=== PATIENT | male | born 1935 | race Asian ===

== ENCOUNTER 2024-03-09 15:32 | Emergency (ER) | payer MEDICARE, OTHER, SELFPAY ==
[2024-03-09] VITALS (9 sets, daily range): BP systolic 125–163; BP diastolic 73–108; PULSE 75–86; RESP 18; TEMP 36.5–36.9; O2SAT 91–95; BMI 27.3
--- NOTE | 2024-03-09 15:55 | EKG_ITS ---
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) [place] Order Number: [id number] Reading MD: Gabbie Molina ([facility]) [place] Measurements Intervals [place] Rate: 82 P: 9 [place]: 159 QRS: -8 QRSD: 88 T: 147 QT: 359 QTc: 421 Interpretive Statements SINUS RHYTHM MODERATE VOLTAGE CRITERIA FOR LVH, CONSIDER NORMAL VARIANT [MEETS CRITERIA IN ONE OF: R(aVL), S(V1), R(V5), R(V5/V6)+S(V1)] NONSPECIFIC T-WAVE ABNORMALITY Compared to ECG 07/08/2019 16:15:51 No significant changes /store/S0/[id number].pdf
--- NOTE | 2024-03-09 15:55 | XR_ITS ---
Examination: PA chest single view TECHNIQUE: Upright PA chest single view Exam date and time: March 09, 2024 1623 hours Comparison July 08, 2019 INDICATIONS: Shortness of breath and fever today. FINDINGS: Normal heart size Ectatic thoracic aorta. No pneumonia or pulmonary edema. The osseous structures are intact Minor subsegmental atelectasis left base IMPRESSION: No pneumonia or pulmonary edema
--- NOTE | 2024-03-09 15:55 | PD.EDRME ---
Rapid Medical Screening Exam RME Arrival date/time: 03/09/24 15:32 This is an 88-year-old male who presents to the emergency department with complaints of generalized weakness that worsens over 6 days. I have greeted and performed a focused initial assessment of this patient. Initial appropriate labs ordered at this time. A comprehensive ED assessment and evaluation of the patient and analysis of all test and completion of medical decision making process will be conducted by additional ED provider. Chief Complaint: Weakness Time Seen by Provider: 03/09/24 15:45 Vital signs: Vital Signs Temperature 98.4 F 03/09/24 15:44 Pulse Rate 86 03/09/24 15:44 Respiratory Rate 18 03/09/24 15:44 Blood Pressure 125/75 03/09/24 15:44 Pulse Oximetry (%) 92 L 03/09/24 15:44 Oxygen Delivery Method Room Air 03/09/24 15:44
--- NOTE | 2024-03-09 16:10 | PD.EDWEAK ---
ED Weakness RME/HPI General Chief complaint: Weakness Stated complaint: WEAK x 6 DAYS, SHORT OF BREATH TODAY Time Seen by Provider: 03/09/24 15:45 Arrival date/time: 03/09/24 15:32 RME / HPI RME / HPI Narrative: 88-year-old male patient with significant history of hypertension, came in for evaluation regarding generalized body weakness. Patient's been having worsening generalized body weakness for the last 6 days, and today patient noticed shortness of breath, severity mild. Patient also complained of getting up during the night at least 10 times to urinate. Patient denies any fever denies any cough denies any other complaints no medication was taken prior to arrival. Related Data Home Medications ?Medication ?Instructions ?Recorded ?Confirmed nifedipine 30 mg tablet,extended 30 mg PO QDAY 11/02/19 11/29/19 release tamsulosin 0.4 mg capsule 0.4 mg PO QHS 11/02/19 11/29/19 Previous Rx's ?Medication ?Instructions ?Recorded amoxicillin 875 mg-potassium 1 tab PO BID #14 tabs 03/09/24 clavulanate 125 mg tablet azithromycin 250 mg tablet 250 mg PO QDAY 4 days #4 tabs 03/09/24 (Zithromax) pantoprazole 40 mg tablet,delayed 40 mg PO QDAY #20 tabs 03/09/24 release (Protonix) tamsulosin 0.4 mg capsule (Flomax) 0.4 mg PO QDAY #30 caps 03/09/24 Allergies Allergy/AdvReac Type Severity Reaction Status Date / Time No Known Allergies Allergy Verified 03/09/24 15:35 Review of Systems Review of Systems Narrative Review of Systems: Review of system reviewed and within normal limits except mentioned in HPI ED Exam Narrative Physical exam: VITAL SIGNS: Reviewed. GENERAL APPEARANCE: Alert and interactive, follows commands, no acute distress, HEAD AND FACE: Non-traumatic. ENT: PERRL, pink conjunctivitis, eyelid no trauma, Mucous membrane moist. NECK: Supple, nontender, no nuchal rigidity. CHEST: No tenderness, no crepitus, no paradoxical movement, no retractions. LUNGS: Clear, well ventilated, symmetric, no rales, no wheezing, no ronchi, no stridor, good breath sounds bilaterally. HEART: Regular rate, regular rhythm, no murmur, no gallops. ABDOMEN: Soft, positive bowel sounds, nondistended, no guarding, nontender, no rebound, no masses, RECTAL: Deferred. GENITAL: Deferred. NEUROLOGICAL: Gross motor function intact sensory function intact, Appropriate for age. MUSCULOSKELETAL: low back nontender, full range of motion. EXTREMITIES: Nontender, full range of motion. SKIN: Color pink, dry, no rash, no lacerations, no abrasions, no contusions. LYMPHATICS: Deferred. Course Quality Measures none Orders Category Date Time Status Bedside COVID-19 Antigen Test NOW Care 03/09/24 15:55 Completed Bedside Influenza A&B Antigen Test NOW Care 03/09/24 15:[address] Screening NOW Care 03/09/24 16:57 Completed EKG (ED ONLY) *Do not use* NOW Care 03/09/24 15:[address] chest abdomen pelvis w Stat Exams 03/09/24 16:56 Completed EKG (ED Only) Stat Exams 03/09/24 15:55 Draft XR chest 1V portable Stat Exams 03/09/24 15:55 Completed B-Type Natriuretic Peptide Stat Lab 03/09/24 16:07 Completed Blood Culture (Lab) Stat Lab 03/09/24 16:11 Received CBC Stat Lab 03/09/24 16:07 Completed Comprehensive Metabolic Panel Stat Lab 03/09/24 16:07 Completed Lactate (Lactic Acid) Stat Lab 03/09/24 16:07 Completed Lipase Stat Lab 03/09/24 16:07 Completed Magnesium Stat Lab 03/09/24 16:07 Completed Partial Thromboplastin Time Stat Lab 03/09/24 16:07 Completed Procalcitonin Stat Lab 03/09/24 16:07 Completed Prothrombin Time with INR Stat Lab 03/09/24 16:07 Completed Troponin I Stat Lab 03/09/24 16:07 Completed Urinalysis Stat Lab 03/09/24 16:54 Completed Urinalysis, C/S if Indicated Stat Lab 03/09/24 16:54 Completed Amoxicillin/Pot Clav 875 [Augmentin 875] Med 03/09/24 20:14 Discontinued 1 tab PO X1 ONE Azithromycin Po [Zithromax PO] Med 03/09/24 20:14 Discontinued 500 mg PO X1 ONE Vital Signs Vital signs: Vital Signs Temperature 98.4 F 03/09/24 15:44 Pulse Rate 86 03/09/24 15:44 Respiratory Rate 18 03/09/24 15:44 Blood Pressure 125/75 03/09/24 15:44 Pulse Oximetry (%) 92 L 03/09/24 15:44 Oxygen Delivery Method Room Air 03/09/24 15:44 Weakness [facility] Narrative [facility] Narrative:: 88-year-old male patient with significant history of hypertension, came in for evaluation regarding generalized body weakness. Patient's been having worsening generalized body weakness for the last 6 days, and today patient noticed shortness of breath, severity mild. Patient also complained of getting up during the night at least 10 times to urinate. Patient denies any fever denies any cough denies any other complaints no medication was taken prior to arrival. Patient's workup all came back normal. Chest x-ray showed pneumonia otherwise unremarkable. CT scan of the abdomen and pelvis showed Atelectasis versus mild pneumonia left lung base, clinical correlation advised Left adrenal nodule 17 mm, indeterminate, consider elective MRI abdomen adrenal glands follow-up, pre and postcontrast 2 mm nonobstructing right renal calculus Moderate bilateral renal parenchymal scar formation, no hydronephrosis Normal appendix Prostatomegaly AP dimension 4.2 cm medial lateral dimension 4.7 cm prostate irregular in contour, recommend correlation with PSA Bladder wall is mildly irregular in contour but no bladder mass noted Patient was given Zithromax and Augmentin in the emergency room. Patient was advised to follow-up closely with urologist regarding his enlarged prostate. Patient and family agrees with the plan. Patient data External records reviewed:: None Clinical information provided by:: patient and family Social determinants that could affect healthcare access:: none Patient has the following chronic illnesses:: Hypertension How is presenting disease/condition affected by chronic disease/condition?: exacerbated by Evaluation data The following diagnostics were reviewed and interpreted by me:: lab results, radiology exam(s) and EKG tracing(s) Lab and/or radiology exams considered but not ordered:: None Interpretation Summary: See above in MDM EKG as interpreted by me showed normal sinus rhythm, ventricular rate of 82 beats per minute no ST segment elevation or depression noted. Medications / Prescriptions Medications or Prescriptions considered but not ordered:: None Medication administrations:: Medication Administration History Discontinued Medications Amoxicillin/Clavulanate Potassium (Amoxicillin/Pot Clav 875 Tablet) 1 tab PO X1 ONE Stop: 03/09/24 20:15 Last Admin: 03/09/24 20:40 Dose: 1 tab Documented By: FRANCHESCA Azithromycin (Azithromycin 250 Mg Tablet) 500 mg PO X1 ONE Stop: 03/09/24 20:15 Last Admin: 03/09/24 20:40 Dose: 500 mg Documented By: FRANCHESCA Augmentin and Zithromax Consultations Consultation(s) initiated? (list below): No Diagnosis Weakness Differential Diagnosis: other (Shortness of breath, pneumonia, cough,) Most likely diagnosis given after review of the tests above:: Shortness of breath, pneumonia, BPH Admission Indicated Admission indicated?: not indicated Explain why admission is indicated or not indicated:: Stable for discharge Admission Request Was there a request for admission?: No Disposition Plan Disposition Plan: Discharge Discharge Attestation Discharge Attestation: The patient and all family members were given an opportunity to ask questions and understood the discharge instructions. Discharge instructions specifically effects, indications for sooner follow up or return to the emergency department, and the expected course of current diagnosis. Patient condition: Stable Discharge Plan Plan Patient Disposition: HOME (Self Care) Disposition Comment: stable Prescriptions/Referrals Prescriptions/Med Rec: New amoxicillin-pot clavulanate 875-125 mg tablet 1 tab PO BID Qty: 14 0RF azithromycin [Zithromax] 250 mg tablet 250 mg PO QDAY 4 Days Qty: 4 0RF Rx Instructions: start on day 2 of therapy pantoprazole [Protonix] 40 mg tablet,delayed release (DR/EC) 40 mg PO QDAY Qty: 20 0RF tamsulosin [Flomax] 0.4 mg capsule 0.4 mg PO QDAY Qty: 30 0RF No Action nifedipine 30 mg tablet extended release 30 mg PO QDAY tamsulosin 0.4 mg capsule 0.4 mg PO QHS Referrals: Rob Stewart MD [Primary Care Provider] - In 1 week Problem List Clinical Impression: Pneumonia, BPH (benign prostatic hyperplasia) Patient/Caregiver Discharge Instructions Education Materials: Treating Pneumonia, ED BPH (Enlarged Prostate) Additional Instructions: Thank you for the opportunity for serving you today. You are stable for discharged . You are advised to: Follow-up with your PCP in 1 to 2 days and as per referral to urologist Return to ED for worsening of symptoms Increase oral fluids Take medication as prescribed Print Language: B[place] Stand Alone Forms: Lorrie Award Info., Patient Portal Info Letter PA/DIALYSIS SOCIAL WORKER Supervising Physician PA/DIALYSIS SOCIAL WORKER Supervising Physician: MD Jesus
[2024-03-09 16:19] LABS: Lactate (Lactic Acid) 1.6 mMol/L (0.4-2.0)
[2024-03-09 16:35] LABS: Basophils % (Auto) 1 % (0-2.5); Eosinophils # (Auto) 0.2 Thou/mm3 (0.0-0.5); Eosinophils % (Auto) 2 % (0-10); Hematocrit 41.5 % (41.0-53.0); Hemoglobin 13.8 g/dL (13.5-16.0); Immature Granulocytes % (Auto) 0 % (0-0); Immature Granulocytes Auto 0.01 Thou/mm3 (0.00-0.00); Lymphocytes # (Auto) 2.8 Thou/mm3 (1.0-4.8); Lymphocytes % (Auto) 36 % (10-50); Mean Corpuscular HGB Conc 33.3 g/dl (31.0-37.0); Mean Corpuscular Hemoglobin 32.2 pg (25.0-35.0); Mean Corpuscular Volume 97 fL (80-100); Monocytes # (Auto) 0.6 Thou/mm3 (0.0-0.8); Monocytes % (Auto) 7 % (0-12); Neutrophils # (Auto) 4.3 Thou/mm3 (1.8-7.7); Neutrophils % (Auto) 55 % (37-80); Nucleated Red Blood Cell % 0 /100 WBC (0); Platelet Count 201 Thou/mm3 (140-440); RDW Standard Deviation 43.3 fL (35.1-43.9); Red Blood Count 4.28 Miln/mm3 (4.50-5.90); White Blood Count 7.9 Thou/mm3 (3.8-10.6)
[2024-03-09 16:42] LABS: INR 0.9 (0.9-1.3); Prothrombin Time 10.4 Seconds (9.0-12.2)
[2024-03-09 16:45] LABS: B-Type Natriuretic Peptide 101 pg/mL (0-100)
[2024-03-09 16:53] LABS: Alanine Aminotransferase 15 U/L (10-49); Albumin, Serum 4.4 gm/dL (3.4-4.8); Albumin/Globulin Ratio 1.3 (1.2-2.2); Alkaline Phosphatase 83 U/L (46-116); Anion Gap 7 (7-16); Aspartate Amino Transferase 21 U/L (0-34); BUN/Creatinine Ratio 17 Ratio (12-20); Bilirubin,Total 0.5 mg/dL (0.3-1.2); Blood Urea Nitrogen 19 mg/dL (9-23); Carbon Dioxide 27.2 mMol/L (20.0-31.0); Chloride 106 mMol/L (98-107); Creatinine (Component) 1.1 mg/dL (0.6-1.3); Estimated Creatinine Clearance 43.8 mL/min (>60); Globulin 3.3 gm/dL (2.3-3.5); Glucose 132 mg/dL (74-106); Lipase 54 U/L (12-53); Magnesium 2.1 mg/dL (1.6-2.6); Osmolality,Calculated 283 (275-295); Potassium 4.6 mMol/L (3.4-5.1); Procalcitonin 0.06 ng/ml (0.0-0.49); Sodium 140 mMol/L (136-145); Total Protein 7.7 gm/dL (5.7-8.2); Troponin I < 0.020 ng/mL (0.0-0.045); eGFR > 60 See Note
--- NOTE | 2024-03-09 16:56 | XR_ITS ---
Examination: CT chest with intravenous contrast CT abdomen with intravenous contrast CT pelvis with intravenous contrast 2-D coronal and sagittal reconstructions Time of exam: March 09, 2024 1742 hrs. Indications: SOB chest and abdominal pain nocturia beginning 6 days ago CTDI: vol (mGy) : 7116 DLP: (mGycm): 564 Technique: Multiple axial images of the chest, abdomen and pelvis with intravenous contrast, 3.0 mm slice thickness. Images obtained post intravenous injection Isovue 370 60 cc. 2-D sagittal and coronal reconstructions. Low dose protocols were performed. One or more of the following dose reduction techniques were used; automated exposure control, adjustment of the mA and/or KV according to patient size, use of iterative reconstruction technique. Findings: No thoracic aortic aneurysm dilatation or dissection No pulmonary artery emboli Mild enlargement cardiac contour No paratracheal tracheobronchial or bronchopulmonary adenopathy Atelectasis versus mild pneumonia left lung base, 8mm bleb in the lower lung zone on the left No liver lesion or biliary tract dilatation Spleen not enlarged Contracted gallbladder No pancreatic mass Left adrenal nodule 17 mm 2 mm upper pole nonobstructing right renal calculus Left renal arterial calcification Moderate bilateral renal parenchymal scar formation No hydronephrosis or ureteral calculi Aorta normal size Abdominal aortic calcification no aneurysmal dilatation Normal appendix No bowel obstruction No diverticulitis Prostatomegaly, AP dimension 4.2 cm mediolateral dimension 4.7 cm, prostate irregular in contour Bladder is mildly irregular in contour but no bladder mass is noted Prominent osteopenia Advanced degenerative disc disease L2-L3, L4-L5 Moderate narrowing hip joints Impression: Atelectasis versus mild pneumonia left lung base, clinical correlation advised Left adrenal nodule 17 mm, indeterminate, consider elective MRI abdomen adrenal glands follow-up, pre and postcontrast 2 mm nonobstructing right renal calculus Moderate bilateral renal parenchymal scar formation, no hydronephrosis Normal appendix Prostatomegaly AP dimension 4.2 cm medial lateral dimension 4.7 cm prostate irregular in contour, recommend correlation with PSA Bladder wall is mildly irregular in contour but no bladder mass noted
[2024-03-09 16:59] LABS: Collection Type, Urine Clean Catch
[2024-03-09 17:07] LABS: Bilirubin,Urine Negative (Negative); Blood,Urine Negative (Negative); Clarity,Urine Clear (Clear/Hazy); Color,Urine Yellow (Lt Yel-Yel); Culture Indicated,Urine Not Indicated; Glucose, Urine Negative (Negative); Hyaline Casts,Urine < 1 /hpf (0-1); Ketones,Urine Negative (Negative); Leukocyte Esterase,Urine Negative (Negative); Nitrite,Urine Negative (Negative); Protein,Urine Trace (Neg - Trace); RBC,Urine 3 /hpf (0-3); Squamous Epithelial Cell,Urine < 1 /hpf (0-5); Urobilinogen,Urine Negative mg/dL (0.0-1.0); WBC,Urine 2 /hpf (0-5)
[2024-03-09] MEDS: AZITHROMYCIN 250 MG TABLET 500 MG PO (20:40)
[2024-03-09] MEDS: AMOXICILLIN/POT CLAV 875 TABLET 1 TAB PO (20:40)
== END 2024-03-09 20:58 | disposition home or self-care (01) ==
PROVIDERS: Nurse Practitioner Primary Care; Emergency Provider Emergency Medicine; PCP Family Medicine
DX: J18.9 Pneumonia, unspecified organism (principal); N40.0 Benign prostatic hyperplasia without lower urinary tract symptoms; R94.31 Abnormal electrocardiogram [ECG] [EKG]; I10 Essential (primary) hypertension; N20.0 Calculus of kidney; N28.89 Other specified disorders of kidney and ureter
CPT/HCPCS: 36415; 71045; 71260; 74177; 80053; 81001; 83605; 83690; 83735; 83880; 84145; 84484; 85025; 85610; 85730; 87040; 87400; 87811; 93005; 99285; A4649; Q9967; A9270